=== PATIENT | male | born 1985 | race Two or more races ===

== ENCOUNTER 2017-08-12 06:29 | Emergency (ER) | payer OTHER ==
[~2017-08-12] VITALS: Ht 175.3 cm; Wt 83.9 kg
[2017-08-12] MEDS ORDERED: BACITRACIN-POLYMYXIN B TOPICAL OINT UD TOP ONE (09:15)
[2017-08-12 09:46] VITALS: BP 131/82
== END 2017-08-12 09:47 | disposition home or self-care (01) ==
LOC: ER 06:29
DX: S60.211A Contusion of right wrist, initial encounter (principal); S60.212A Contusion of left wrist, initial encounter; S80.02XA Contusion of left knee, initial encounter; S50.312A Abrasion of left elbow, initial encounter; S00.33XA Contusion of nose, initial encounter; Z88.0 Allergy status to penicillin; Y08.89XA Assault by other specified means, initial encounter; Y93.89 Activity, other specified; Y99.8 Other external cause status; Y92.89 Other specified places as the place of occurrence of the external cause
CPT/HCPCS: 73110; 73130; 73562

== ENCOUNTER 2017-08-13 02:50 | Emergency (ER) | payer OTHER ==
[~2017-08-13] VITALS: Ht 175.3 cm; Wt 83.9 kg
[2017-08-13 03:04] VITALS: BP 152/70
== END 2017-08-13 04:32 | disposition home or self-care (01) ==
LOC: ER 02:52
DX: S66.911A Strain of unspecified muscle, fascia and tendon at wrist and hand level, right hand, initial encounter (principal); S63.652A Sprain of metacarpophalangeal joint of right middle finger, initial encounter; Z88.0 Allergy status to penicillin; X58.XXXA Exposure to other specified factors, initial encounter; Y93.89 Activity, other specified; Y99.0 Civilian activity done for income or pay; Y92.69 Other specified industrial and construction area as the place of occurrence of the external cause
CPT/HCPCS: 73200

== ENCOUNTER → 2019-05-14 | Outpatient (CLI) | payer OTHER, BC ==
[2019-05-14 14:15] LABS: Urine WBC None Seen /hpf (0 - 3)
[2019-05-14 14:23] LABS: Basophils # (auto) 0.1 uL; Basophils % (auto) 1.1 % (0.0-2.0); Eosinophils # (auto) 0.3 uL; Eosinophils % (auto) 3.2 % (0.0-7.0); Hematocrit 48.4 % (41.0-53.0); Hemoglobin 16.2 g/dL (13.5-17.5); Lymphocytes # (auto) 2.7 uL; Lymphocytes % (auto) 29.3 % (10.0-50.0); Mean Corpuscular Hemoglobin 28.5 pg (28.0-32.0); Mean Corpuscular Hgb Conc. 33.5 g/dL (32.0-36.0); Mean Corpuscular Volume 85.1 fL (80.0-100.0); Monocytes # (auto) 0.8 uL; Monocytes % (auto) 9.1 % (0.0-12.0); Neutrophils # (auto) 5.2 uL; Neutrophils % (auto) 57.3 % (37.0-80.0); Platelet Count (auto) 295 10^3/uL (140-450); Red Blood Cells 5.69 10^6/uL (4.5-5.90); Red Cell Distribution Width 13.7 % (11.8-14.3); White Blood Cell 9.1 10^3/uL (4.4-10.8)
[2019-05-14 14:33] LABS: Albumin 3.8 g/dL (3.4-5.0); BUN/Creatinine Ratio 15.2; Calcium 8.9 mg/dL (8.5-10.1); Magnesium 2.2 mg/dL (1.6-2.6); Uric Acid 5.3 mg/dL (3.5-7.2)
[2019-05-14 14:36] LABS: Bilirubin, Total 0.5 mg/dL (0.2-1.0); Total Protein 7.9 g/dL (6.4-8.2)
[2019-05-14 14:41] LABS: Free T3 4.77 pg/mL (2.3-4.2); Free T4 (Free Thyroxine) 1.15 ng/dL (0.89-1.76); T3 Total 1.53 ng/mL (0.60-1.81)
[2019-05-14 14:42] LABS: Folate (Folic Acid) 13.54 ng/mL (5.38-24)
[2019-05-14 15:23] LABS: Urine Bacteria NONE SEEN /hpf (None Seen); Urine Blood Negative /uL (Negative); Urine Specific Gravity 1.015 (1.001-1.035)
== END | disposition home or self-care (01) ==
LOC: LAB 13:42
PROVIDERS: ATTEND Internal Medicine
DX: Z12.11 Encounter for screening for malignant neoplasm of colon (principal); Z13.228 Encounter for screening for other metabolic disorders; Z13.21 Encounter for screening for nutritional disorder; Z76.89 Persons encountering health services in other specified circumstances
CPT/HCPCS: 36415; 80053; 80061; 81001; 82306; 82607; 82746; 83036; 83735; 84439; 84480; 84481; 84550; 85025; 87086

== ENCOUNTER 2019-06-08 23:21 | Emergency (ER) | payer BC, OTHER ==
[~2019-06-08] VITALS: Ht 175.3 cm; Wt 82.1 kg
[2019-06-09 00:43] VITALS: BP 177/115
== END 2019-06-09 05:00 | disposition home or self-care (01) ==
LOC: EEVIPCON 23:23 → ER 23:23
DX: S20.212A Contusion of left front wall of thorax, initial encounter (principal); S63.613A Unspecified sprain of left middle finger, initial encounter; Z88.0 Allergy status to penicillin; Y04.0XXA Assault by unarmed brawl or fight, initial encounter; Y93.89 Activity, other specified; Y92.89 Other specified places as the place of occurrence of the external cause; Y99.8 Other external cause status
CPT/HCPCS: 71101; 73140